=== PATIENT | female | born 1950 | race Caucasian/White ===

== ENCOUNTER 2022-11-07 04:38 | Day surgery (SDC) | payer OTHER, BC ==
[2022-11-05 16:42] VITALS: BMI 25.4
[2022-11-07 11:58] VITALS: TEMP 97.1
[2022-11-07 12:00] VITALS: BP 114/60; PULSE 65; RESP 18
== END 2022-11-07 12:02 | disposition home or self-care (01) ==
LOC: JASU-ENDO 04:38
PROVIDERS: ATTEND Internal Medicine Gastroenterology
PROC: 0DJD8ZZ Inspection of Lower Intestinal Tract, Via Natural or Artificial Opening Endoscopic (ICD-10-PCS; principal; 2022-11-07 10:00)
DX: Z12.11 Encounter for screening for malignant neoplasm of colon (principal); R19.5 Other fecal abnormalities